=== PATIENT | female | born 2000 | race Caucasian/White ===

== ENCOUNTER 2022-08-19 22:29 | Inpatient (IN) | payer MEDICAID, SELFPAY ==
[2022-08-19 22:38] VITALS: BP 136/86; PULSE 76; RESP 18; TEMP 36.8; O2SAT 98
--- NOTE | 2022-08-19 22:53 | ED.C_ITS ---
HPI - Psych General: Chief Complaint: Psychiatric Symptoms Stated Complaint: MHE Time Seen by Provider: 08/19/22 22:42 Source: patient Mode of arrival: ambulatory Limitations: no limitations History of Present Illness: 22-year-old female who has history of bipolar disorder states she stopped taking her Latuda in April she lives in [facility] mom states that she moved here 3 weeks ago states over the last week she has been extremely paranoid she has made statements she feels like her mom's is going to try to kill her she is also having suicidal thoughts she informing she does have thoughts of suicide with no specific plan she denies any worsening proving factors. Associated symptoms: Reports delusions and suicidal ideation Review of Systems Const: Denies: fever(s), chills, body aches or change in appetite Eyes: Denies: blurry vision or eye discomfort ENMT: Denies: throat pain or dental pain Card: Denies: chest pain Resp: Denies: dyspnea GI: Denies: abdominal pain, nausea, vomiting or diarrhea : Denies: dysuria Musc: Denies: neck pain or back pain Skin/Breast: Denies: rash Neuro: Denies: headache(s) Psych: Reports: paranoia and suicidal ideation Vinod/Lymph: Denies: easy bruising All/Imm: Denies: urticaria PFSH ED PFSH: Medical History (Updated 08/19/22 @ 23:20 by Yessi Cruz MD) Bipolar 1 disorder Social History (Updated 08/19/22 @ 22:54 by Yessi Cruz MD) Substance/Drug Use: never Physical Exam Const: COMMON NORMALS: no acute distress, patient oriented x3 and healthy appearing HENMT: COMMON NORMALS: normocephalic and atraumatic HEAD & SCALP: normocephalic and atraumatic Eye: COMMON NORMALS: Equal, round and reactive pupils present and EOMs intact bilaterally PUPIL: Yes Equal, round and reactive pupils present Neck/C-Spine: COMMON NORMALS: full ROM and supple Chest: COMMONS NORMALS: normal inspection of the chest and normal palpation of entire chest wall Resp: COMMON NORMALS: normal respiratory effort, No retractions, No use of accessory muscles and clear to auscultation bilaterally AUSCULTATION: clear to auscultation bilaterally Cardio: COMMON NORMALS: regular rate, regular rhythm and No murmurs present (Cardio) RATE: regular rate RHYTHM: regular rhythm GI: COMMON NORMALS: Normal to inspection, nondistended, normoactive bowel sounds present, Soft to palpation, non-tender and no masses PALPATION: Yes Soft to palpation Extremity: COMMON NORMALS: normal to inspection and full ROM Neuro: COMMON NORMALS: patient oriented x3, moves all extremities and no focal motor deficits Psych: COMMON NORMALS: mental status grossly normal, Normal thought process present and cooperative THOUGHT PROCESS: Normal thought process present THOUGHT CONTENT: Yes Suicidality present, Yes delusions and Yes Hallucination(s) present Skin: COMMON NORMALS: no rashes or lesions noted and no wounds GENERAL SKIN EXAM: no rashes or lesions noted Course Vital Signs: Vital signs: Vital Signs Temperature 98.3 F 08/19/22 22:38 Pulse Rate 76 08/19/22 22:38 Respiratory Rate 18 08/19/22 22:38 Blood Pressure 136/86 08/19/22 22:38 Pulse Oximetry 98 08/19/22 22:38 Oxygen Delivery Me thod 08/19/22 22:38 MDM - Psych Medical Decision Making Patient presents here with suicidal ideation along with paranoia I spoke to Dr. Vallejo he should have discharge tomorrow and will admit at that time she is medically cleared. Lab Data 08/19/22 23:01 08/19/22 23:01 Laboratory Results WBC 10.6 10^3/uL (4.0-10.0) H 08/19/22 23:01 RBC 4.47 10^6/uL (4.1-5.3) 08/19/22 23:01 Hgb 11.3 g/dL (11.5-15.3) L 08/19/22 23:01 Hct 36.8 % (37.0-47.0) L 08/19/22 23:01 MCV 82.3 fl (81-99) 08/19/22 23: MCH 25.3 pg (28.0-34.0) L 08/19/22 23:01 MCHC 30.7 g/dL (30.0-36.0) 08/19/22 23:01 RDW 13.6 % (12.1-15.1) 08/19/22 23:01 Plt Count 340 10^3/cmm (130-400) 08/19/22 23:01 MPV 9.8 fL (7.4-10.4) 08/19/22 23:01 Neut % (Auto) 60.8 % 08/19/22 23:01 Lymph % (Auto) 29.4 % 08/19/22 23:01 [place] % (Auto) 8.2 % 08/19/22 23:01 Eos % (Auto) 0.8 % 08/19/22 23:01 Baso % (Auto) 0.4 % 08/19/22 23:01 Neut # (Auto) 6.44 10^3/uL (1.8-7.7) 08/19/22 23:01 Lymph # (Auto) 3.1 10^3/uL (0.8-4.8) 08/19/22 23:01 [place] # (Auto) 0.9 10^3/uL (0.2-0.9) 08/19/22 23:01 Eos # (Auto) 0.1 10^3/uL (0.0-0.8) 08/19/22 23:01 Baso # (Auto) 0.0 10^3/uL (0.0-0.1) 08/19/22 23:01 Nucleated RBC % (auto) 0 % 08/19/22 23:01 Nucleated RBCs # 0.0 /100WBC 08/19/22 23:01 HCG, Qual Negative (Negative) 08/19/22 22:53 Urine Opiates Screen Negative ng/mL (Negative) 08/19/22 22:53 Ur Barbiturates Screen Negative ng/mL (Negative) 08/19/22 22:53 Ur Phencyclidine Scrn Negative ng/mL (Negative) 08/19/22 22:53 Ur Amphetamines Screen Negative ng/mL (Negative) 08/19/22 22:53 U Benzodiazepines Scrn Negative ng/mL (Negative) 08/19/22 22:53 Urine Cocaine Screen Negative ng/mL (Negative) 08/19/22 22:53 U Marijuana (THC) Screen Negative ng/mL (Negative) 08/19/22 22:53 Discharge Plan Discharge Patient Disposition: Admitted As Inpatient Clinical Impression: Bipolar disorder, Suicidal ideation Coding Level of Care Code ED Ear Nose Throat Physician for Cierra Kelley
[2022-08-19 23:11] LABS: Amphetamines Screen Urine Negative (Negative); Barbiturates Screen Urine Negative (Negative); Benzodiazepines Screen Urine Negative (Negative); Cocaine Screen Urine Negative (Negative); Opiate Screen Urine Negative (Negative); PCP Screen Urine Negative (Negative); THC Screen Urine Negative (Negative)
[2022-08-19 23:12] LABS: Basophils % 0.4 %; Eosinophils # 0.1 10^3/uL (0.0-0.8); Eosinophils % 0.8 %; Hematocrit 36.8 % (37.0-47.0); Hemoglobin 11.3 g/dL (11.5-15.3); Lymphocytes # 3.1 10^3/uL (0.8-4.8); Lymphocytes % 29.4 %; Mean Corpuscular HGB Conc 30.7 g/dL (30.0-36.0); Mean Corpuscular Hemoglobin 25.3 pg (28.0-34.0); Mean Corpuscular Volume 82.3 fl (81-99); Mean Platelet Volume 9.8 fL (7.4-10.4); Monocytes # 0.9 10^3/uL (0.2-0.9); Monocytes % 8.2 %; Neutrophils # 6.44 10^3/uL (1.8-7.7); Neutrophils % 60.8 %; Nucleated Red Blood Cells % 0 %; Platelet Count 340 10^3/cmm (130-400); Red Blood Count 4.47 10^6/uL (4.1-5.3); Red Cell Distribution Width 13.6 % (12.1-15.1); White Blood Count 10.6 10^3/uL (4.0-10.0)
[2022-08-19 23:17] LABS: HCG Qualitative Urine. Negative (Negative)
[2022-08-19 23:30] LABS: Alanine Aminotransferase 15 U/L (0-33); Albumin Level 4.3 g/dL (3.5-5.2); Alkaline Phosphatase 72 U/L (35-105); Aspartate Amino Transferase 15 U/L (0-32); Blood Urea Nitrogen 8 mg/dL (6-20); Calcium 8.8 mg/dL (8.5-10.5); Carbon Dioxide 20 mmol/L (22-29); Chloride 102 mmol/L (98-107); Globulin 3.5 g/dL (1.3-4.6); Glucose 95 mg/dL (65-115); Osmolality Calculated 276 mOsm/kg (285-295); Salicylate 1.8 mg/dL (3-10); Sodium 134 mmol/L (136-145); Total Bilirubin 0.2 mg/dL (0.15-1.2); Total Protein 7.8 g/dL (6.6-8.7)
[2022-08-19 23:37] LABS: Acetaminophen < 5.0 ug/mL (10-30); Alcohol Level < 10 mg/dL (0-10)
--- NOTE | 2022-08-20 00:31 | ED.C_ITS ---
HPI - Psych General: Chief Complaint: Psychiatric Symptoms Stated Complaint: MHE Time Seen by Provider: 08/19/22 22:42 Source: patient Mode of arrival: ambulatory [facility] ED PFSH: Medical History (Updated 08/19/22 @ 23:20 by Yessi Cruz MD) Bipolar 1 disorder Social History (Updated 08/19/22 @ 22:54 by Yessi Cruz MD) Substance/Drug Use: never Course Vital Signs: Vital signs: Vital Signs Temperature 98.3 F 08/19/22 22:38 Pulse Rate 76 08/19/22 22:38 Respiratory Rate 18 08/19/22 22:38 Blood Pressure 136/86 08/19/22 22:38 Pulse Oximetry 98 08/19/22 22:38 Oxygen Delivery Me thod 08/19/22 22:38 MDM - Psych Medical Decision Making Patient presents here with paranoid along with suicidal ideation I spoke to psychiatrist he will and will admit here she is medically cleared. Lab Data 08/19/22 23:01 08/19/22 23:01 Laboratory Results WBC 10.6 10^3/uL (4.0-10.0) H 08/19/22 23:01 RBC 4.47 10^6/uL (4.1-5.3) 08/19/22 23:01 Hgb 11.3 g/dL (11.5-15.3) L 08/19/22 23:01 Hct 36.8 % (37.0-47.0) L 08/19/22 23:01 MCV 82.3 fl (81-99) 08/19/22 23:01 MCH 25.3 pg (28.0-34.0) L 08/19/22 23:01 MCHC 30.7 g/dL (30.0-36.0) 08/19/22 23:01 RDW 13.6 % (12.1-15.1) 08/19/22 23:01 Plt Count 340 10^3/cmm (130-400) 08/19/22 23:01 MPV 9.8 fL (7.4-10.4) 08/19/22 23:01 Neut % (Auto) 60.8 % 08/19/22 23: Lymph % (Auto) 29.4 % 08/19/22 23:01 [place] % (Auto) 8.2 % 08/19/22 23: Eos % (Auto) 0.8 % 08/19/22 23:01 Baso % (Auto) 0.4 % 08/19/22 23: Neut # (Auto) 6.44 10^3/uL (1.8-7.7) 08/19/22 23:01 Lymph # (Auto) 3.1 10^3/uL (0.8-4.8) 08/19/22 23: [place] # (Auto) 0.9 10^3/uL (0.2-0.9) 08/19/22 23: Eos # (Auto) 0.1 10^3/uL (0.0-0.8) 08/19/22 23: Baso # (Auto) 0.0 10^3/uL (0.0-0.1) 08/19/22 23:01 Nucleated RBC % (auto) 0 % 08/19/22 23: Nucleated RBCs # 0.0 /100WBC 08/19/22 23: Sodium 134 mmol/L (136-145) L 08/19/22 23: Potassium 4.0 mmol/L (3.5-5.1) 08/19/22 23: Chloride 102 mmol/L (98-107) 08/19/22 23: Carbon Dioxide 20 mmol/L (22-29) L 08/19/22 23: Anion Gap 16.0 (5-19) 08/19/22 23: BUN 8 mg/dL (6-20) 08/19/22 23: Creatinine 0.6 mg/dL (0.5-0.9) 08/19/22 23: GFR Calculation 125.0 mL/min (90-130) 08/19/22 23: Glucose 95 mg/dL (65-115) 08/19/22 23: Calculated Osmolality 276 mOsm/kg (285-295) L 08/19/22 23: Calcium 8.8 mg/dL (8.5-10.5) 08/19/22 23: Total Bilirubin 0.2 mg/dL (0.15-1.2) 08/19/22 23: AST 15 U/L (0-32) 04/06/23 23:01 ALT 15 U/L (0-33) 08/19/22 23:01 Alkaline Phosphatase 72 U/L (35-105) 08/19/22 23:01 Total Protein 7.8 g/dL (6.6-8.7) 08/19/22 23:01 Albumin 4.3 g/dL (3.5-5.2) 08/19/22 23:01 Globulin 3.5 g/dL (1.3-4.6) 08/19/22 23:01 HCG, Qual Negative (Negative) 08/19/22 22:53 Salicylates 1.8 mg/dL (3-10) L 08/19/22 23:01 Urine Opiates Screen Negative ng/mL (Negative) 08/19/22 22:53 Acetaminophen < 5.0 ug/mL (10-30) L 08/19/22 23:01 Ur Barbiturates Screen Negative ng/mL (Negative) 08/19/22 22:53 Ur Phencyclidine Scrn Negative ng/mL (Negative) 08/19/22 22:53 Ur Amphetamines Screen Negative ng/mL (Negative) 08/19/22 22:53 U Benzodiazepines Scrn Negative ng/mL (Negative) 08/19/22 22:53 Urine Cocaine Screen Negative ng/mL (Negative) 08/19/22 22:53 U Marijuana (THC) Screen Negative ng/mL (Negative) 08/19/22 22:53 Ethyl Alcohol < 10 mg/dL (0-10) 08/19/22 23:01 Discharge Plan Discharge Patient Disposition: Admitted As Inpatient Clinical Impression: Bipolar disorder, Suicidal ideation Coding Level of Care Code ED Global Supply Chain Director for Cierra Kelley
[2022-08-20] MEDS: diphenhydrAMINE 50 mg Capsule PO (01:32)
[2022-08-20] MEDS: metoclopramide 10 mg Tablet PO (01:32)
--- NOTE | 2022-08-20 01:33 | PC.NURSE ---
At 2320 patient was served 96 hour hold paperwork with security at bedside. All rights were read by the patient. Patient verbalized understanding. All questions were answered.
--- NOTE | 2022-08-20 08:03 | PC.PHAR ---
ATTEMPTED TO VERIFY PTS MEDS AT 8:00 AM- PT UNSURE OF NAMES AND MG OF MEDICATIONS- WAITING FOR PTS MOTHER TO CALL BACK
[2022-08-20 16:32] VITALS: BP 119/84; PULSE 78; RESP 16; TEMP 36.8; O2SAT 97
[2022-08-20 20:52] VITALS: BP 124/79; PULSE 93; RESP 16; TEMP 36.8; O2SAT 96
[2022-08-21] MEDS: OLANZapine 5 mg ODT PO (03:56)
--- NOTE | 2022-08-21 03:56 | PC.NURSE ---
Patient came to RN station & said that she was supposed to let us know if any of her psychotic features were acting up & she feels like the building is wrapping & things are moving, but they aren't scaring her & she isn't hearing anything . Zyprexa 5mg given.
[2022-08-21 06:00] VITALS: RESP 18
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
[2022-08-21 14:00] VITALS: BP 116/74; PULSE 94; RESP 16; TEMP 36.6; O2SAT 99
[2022-08-21] MEDS: ziprasidone hcl 20 mg Capsule PO (14:52)
[2022-08-21 20:09] VITALS: BP 123/76; PULSE 78; RESP 16; TEMP 36.7; O2SAT 98
[2022-08-22 06:00] VITALS: BP 126/80; PULSE 66; RESP 16; TEMP 36.7; O2SAT 100
[2022-08-22] MEDS: acetaminophen 325 mg Tablet 650 MG PO (06:15)
[2022-08-22] MEDS: ziprasidone hcl 20 mg Capsule PO (08:24)
[2022-08-22] MEDS: pantoprazole DR 40 mg Tablet PO ×2 (08:24→18:27)
--- NOTE | 2022-08-22 08:31 | P.NPUPN_ITS ---
Subjective NPU Subjective: Patient presented today reporting that things were fine overnight. She reports that she feels that the medication change has been okay. She denies having any perceptual disturbances. We discussed that Dr. Cage would be here tomorrow and she will work with him and treatment team to figure out a plan for discharge likely over the next 48 hours. Mental Status Exam MSE Comments: Cooperative with exam in mild distress. Speech was slightly decreased rate and volume. Mood described as a little better, affect is congruent. Thought process, organized. Thought content: patient denies suicidal or homicidal ideation, no delusions reported or noted and denies any auditory/visual hallucination this morning. Attention and concentration are intact and memory appeared reliable but none were formally tested. She is alert and oriented times three. Insight and judgement are fair. Impulse control is li mited. Vitals/I&O/Wt Last Vital Signs Temp 98.5 F 08/22/22 20:08 Pulse 87 08/22/22 20:08 Resp 16 08/22/22 20:08 BP 132/89 08/22/22 20:08 Pulse Ox 98 08/22/22 20:08 O2 Del Method 08/22/22 20:08 Weight last 48 hrs Weight 97.069 kg Data NPU 08/19/22 23:01 08/19/22 23:01 Involuntary Hold Information 96 Hour Hold: 96 Hour Involuntary Admission: Yes 96 Hour Hold Ending Date: 08/25/22 96 Hour Hold Ending Time: 23:00 Attestations NPU Medical Necessity Statement*: Inpatient hospitalization is medically necessary and the clinically appropriate intervention at this time. We will monitor medications and make changes as indicated. Likely length of stay is 1-4 days. Coding Level of Care Code Acute Code for [facility]
[2022-08-22 14:00] VITALS: BP 122/80; PULSE 83; RESP 18; TEMP 36.8; O2SAT 99
[2022-08-22] MEDS: ziprasidone hcl 60 mg Capsule PO (18:27)
[2022-08-22] MEDS: trazodone 50 mg Tablet PO (20:06)
[2022-08-22 20:08] VITALS: BP 132/89; PULSE 87; RESP 16; TEMP 36.9; O2SAT 98
--- NOTE | 2022-08-22 20:10 | PC.NURSE ---
PRN trazodone given for sleep as ordered per pt request.
[2022-08-23 06:00] VITALS: BP 117/79; PULSE 78; RESP 18; TEMP 36.6; O2SAT 98
[2022-08-23] MEDS: pantoprazole DR 40 mg Tablet PO (08:32)
[2022-08-23] MEDS: ziprasidone hcl 20 mg Capsule PO (08:32)
[2022-08-23 14:00] VITALS: BP 119/57; PULSE 91; RESP 16; TEMP 36.8; O2SAT 97
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
[2022-08-23 15:59] VITALS: BP 116/77; PULSE 89; RESP 16; TEMP 36.8; O2SAT 98
== END 2022-08-23 16:18 | disposition home or self-care (01) | DRG 885 ==
LOC: ER 23:20 → ER IP 08-20 16:41 → NP 08-20 16:41
PROVIDERS: Admitting Provider Psychiatry & Neurology Psychiatry; Emergency Provider Emergency Medicine; Visit Provider Psychiatry & Neurology Psychiatry
DX: F31.9 Bipolar disorder, unspecified (principal); R45.851 Suicidal ideations; F22 Delusional disorders; T50.996A Underdosing of other drugs, medicaments and biological substances, initial encounter; Z91.128 Patient's intentional underdosing of medication regimen for other reason; Z81.8 Family history of other mental and behavioral disorders
CPT/HCPCS: 80053; 80306; 80307; 81025; 85025; 97150; 97165; 99285; J8597; Q0163

== ENCOUNTER 2022-08-27 15:13 | Inpatient (IN) | payer MEDICAID, SELFPAY ==
[2022-08-27 15:18] VITALS: BP 148/95; PULSE 162; RESP 32; TEMP 36.8; O2SAT 100; BMI 36.8
--- NOTE | 2022-08-27 15:26 | ED.C_ITS ---
HPI - Psych General: Chief Complaint: Neuro Symptoms/Deficit Stated Complaint: stroke like symptoms Time Seen by Provider: 08/27/22 15:20 Source: patient Mode of arrival: ambulatory History of Present Illness: 22-year-old female arrives to the emergency room complaining of numbness and tingling she is obviously hyperventilating on arrival we were able to assistant coach her down a little bit and calm her breathing which did relieve some of her symptoms. She was recently hospitalized on 08/20 and discharged on 08/23. She has no specific complaints initially when I seen her. She did express suicidal ideation to the nurse while she was doing her triage. Her previous MPU admission was for suicidal ideation as well MD complaint: suicidal ideation and feels depressed Associated psychiatric symptoms: suicidal ideation Associated symptoms: Reports depression and suicidal ideation Review of Systems 2 Const: Denies: fever(s), chills, body aches, change in appetite, fatigue or malaise ENMT: Denies: throat pain, ear or mastoid pain, nasal discharge or nasal congestion Card: Denies: chest pain, edema, dyspnea on exertion or orthopnea Resp: Denies: dyspnea, productive cough or non-productive cough GI: Denies: abdominal pain, nausea, vomiting, diarrhea or constipation : Denies: flank pain, difficulty voiding, dysuria, urinary frequency or urinary urgency Skin/Breast: Denies: rash or pruritus Psych: Reports: depression and suicidal ideation [facility] ED PFSH: Medical History Bipolar 1 disorder Physical Exam Const: COMMON NORMALS: no acute distress GENERAL APPEARANCE: cooperative and comfortable ORIENTATION/CONSCIOUSNESS: Yes awake, Yes oriented to person, Yes oriented to place and Yes oriented to time HENMT: COMMON NORMALS: normocephalic, atraumatic and hearing grossly normal bilaterally HEAD & SCALP: normocephalic and atraumatic Resp: COMMON NORMALS: normal respiratory effort, No retractions, No use of accessory muscles and clear to auscultation bilaterally AUSCULTATION: clear to auscultation bilaterally Cardio: COMMON NORMALS: regular rate, regular rhythm and No murmurs present (Cardio) RATE: regular rate RHYTHM: regular rhythm GI: COMMON NORMALS: Soft to palpation and No hepatosplenomegaly present AUSCULTATION: Yes normoactive bowel sounds PALPATION: Yes Soft to palpation, No Tenderness to palpation present (GI), No Guarding due to palpation present (GI) and Yes No hepatosplenomegaly present Extremity: COMMON NORMALS: normal to inspection, capillary refill normal, no clubbing, cyanosis or edema, no calf tenderness and no pedal edema Neuro: SENSORIUM/ORIENTATION: Yes oriented to person, Yes oriented to place and Yes oriented to time OTHER: No focal neurologic deficits are noted NIH 0 Skin: COMMON NORMALS: no rashes or lesions noted GENERAL SKIN EXAM: no rashes or lesions noted Course Vital Signs: Vital signs: Vital Signs Temperature 98.2 F 08/27/22 15:18 Pulse Rate 162 H 08/27/22 15:18 Respiratory Rate 32 H 08/27/22 15:18 Blood Pressure 148/95 08/27/22 15:18 Pulse Oximetry 100 08/27/22 15:18 Oxygen Delivery Me thod Room Air 08/27/22 15:18 MDM - Psych Medical Decision Making Patient expressed suicidal ideation. On arrival here she is acutely hyperventilating as documented by the ABG. 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 Discussed with Dr. Flores is on-call for psychiatry who recommends admission at this time. Patient placed on a 96-hour hold. Medical Records I reviewed the patient's medical records. Lab Data I reviewed the patient's lab results. Laboratory Results Specimen Type Arterial 08/27/22 15: Sample Site Radial, right 08/27/22 15:23 ABG pH 7.46 (7.35-7.45) H 08/27/22 15: ABG pCO2 29.3 mmHg (35-45) L 08/27/22 15:23 ABG pO2 105.0 mmHg (80.0-100.0) H 08/27/22 15:23 ABG HCO3 21.0 mmol/L (22-26) L 08/27/22 15:23 ABG O2 Saturation 99.4 08/27/22 15:23 ABG Base Excess -1.8 mmol/L (-2.0-2.0) 08/27/22 15:23 Johnnie Test Pos 08/27/22 15:23 A-a O2 Gradient 0.7 mmHg (5-10) L 08/27/22 15:23 Hematocrit 35.7 % (37-47) L 08/27/22 15:23 Hgb O2 Saturation 97.4 % (95-100) 08/27/22 15:23 Carboxyhemoglobin 1.2 %THgb (0.4-20.1) 08/27/22 15:23 Methemoglobin 0.7 % (0.4-1.5) 08/27/22 15:23 Total Hemoglobin 11.7 g/dL (12-16) L 08/27/22 15:23 Sodium 140.0 mmol/L (131-143) 08/27/22 15:23 Potassium 3.9 mmol/L (3.5-5.0) 08/27/22 15:23 Glucose 125.0 mg/dL (70-115) H 08/27/22 15:23 Ionized Calcium 1.2 mmol/L (1.1-1.4) 08/27/22 15:23 O2 Delivery Device None 08/27/22 15: FiO2 21.0 % 08/27/22 15:23 Air Brush Operator ID [place] 08/27/22 15:23 Discharge Plan Discharge Patient Disposition: Admitted As Inpatient Admit Provider: Dev Cage Clinical Impression: Suicidal ideation, Bipolar 1 disorder Condition: Stable Coding Level of Care Code ED Operations Label Clerk for Cierra Kelley
[2022-08-27 15:34] LABS: ABG PCO2 29.3 mmHg (35-45); ABG PH Result 7.46 (7.35-7.45); Alveolar-Arterial Oxygen Gradi 0.7 mmHg (5-10); Arterial Blood Gas Hematocrit 35.7 % (37-47); Base Excess ABG -1.8 mmol/L (-2.0-2.0); Blood Gas Allen Test Pos; Blood Gas Operator Identificat WALCI; Blood Gas Sample Site Radial, right; Blood Gas Sample Type Arterial; Carboxyhemoglobin 1.2 %THgb (0.4-20.1); HGB O2 Sat 97.4 % (95-100); Ionized Calcium Level - ABG 1.2 mmol/L (1.1-1.4); Methemoglobin 0.7 % (0.4-1.5); Oxygen Saturation ABG 99.4; Potassium Level - ABG 3.9 mmol/L (3.5-5.0); Total Hemoglobin 11.7 g/dL (12-16)
[2022-08-27 17:06] LABS: Add Urine Microscopic? NO; Charge for UA Resulting for Rev
[2022-08-27 17:11] LABS: Bilirubin Urine Neg (Negative); Blood Urine Neg (Negative); Glucose Urine UA Norm (Normal); Ketones Urine Negative (Negative); Leukocyte Esterase Urine Negative (Negative); Nitrate Urine Negative (Negative); Protein Urine Neg (Negative); Specific Gravity, Urine 1.015 (1.005-1.030); Urine Appearance Clear (CLEAR); Urine Color Yellow (Yellow); Urobilinogen Urine Neg (Negative); pH Urine 7 (5-7)
[2022-08-27 17:31] LABS: Amphetamines Screen Urine Negative (Negative); Barbiturates Screen Urine Negative (Negative); Benzodiazepines Screen Urine Negative (Negative); Cocaine Screen Urine Negative (Negative); Opiate Screen Urine Negative (Negative); PCP Screen Urine Negative (Negative); THC Screen Urine Negative (Negative)
[2022-08-27 17:37] VITALS: BP 114/76; PULSE 82; RESP 16; TEMP 36.7; O2SAT 99
[2022-08-27 18:06] LABS: Basophils % 0.3 %; Eosinophils # 0.1 10^3/uL (0.0-0.8); Eosinophils % 0.6 %; Hematocrit 36.5 % (37.0-47.0); Hemoglobin 11.4 g/dL (11.5-15.3); Lymphocytes # 2.9 10^3/uL (0.8-4.8); Mean Corpuscular HGB Conc 31.2 g/dL (30.0-36.0); Mean Corpuscular Hemoglobin 25.7 pg (28.0-34.0); Mean Corpuscular Volume 82.4 fl (81-99); Mean Platelet Volume 9.9 fL (7.4-10.4); Monocytes # 0.6 10^3/uL (0.2-0.9); Monocytes % 6.4 %; Neutrophils # 5.77 10^3/uL (1.8-7.7); Neutrophils % 61.5 %; Nucleated Red Blood Cells % 0 %; Platelet Count 331 10^3/cmm (130-400); Red Blood Count 4.43 10^6/uL (4.1-5.3); Red Cell Distribution Width 14.1 % (12.1-15.1); White Blood Count 9.4 10^3/uL (4.0-10.0)
[2022-08-27 18:26] LABS: Alanine Aminotransferase 15 U/L (0-33); Albumin Level 4.4 g/dL (3.5-5.2); Alkaline Phosphatase 74 U/L (35-105); Anion Gap 13.9 (5-19); Aspartate Amino Transferase 15 U/L (0-32); Blood Urea Nitrogen 5 mg/dL (6-20); Calcium 8.5 mg/dL (8.5-10.5); Carbon Dioxide 24 mmol/L (22-29); Chloride 104 mmol/L (98-107); Globulin 3.1 g/dL (1.3-4.6); Glomerular Filtration Rate 154.3 mL/min (90-130); Glucose 82 mg/dL (65-115); Osmolality Calculated 282 mOsm/kg (285-295); Potassium 3.9 mmol/L (3.5-5.1); Sodium 138 mmol/L (136-145); Total Bilirubin 0.2 mg/dL (0.15-1.2); Total Protein 7.5 g/dL (6.6-8.7)
[2022-08-27 18:27] LABS: Acetaminophen < 5.0 ug/mL (10-30); Salicylate < 0.3 mg/dL (3-10)
[2022-08-27] MEDS: trazodone 50 mg Tablet PO (20:21)
[2022-08-27] MEDS: acetaminophen 325 mg Tablet 650 MG PO (20:25)
[2022-08-27] MEDS: ziprasidone hcl 60 mg Capsule PO (20:39)
[2022-08-27 22:00] VITALS: BP 117/75; PULSE 78; RESP 18; TEMP 36.8; O2SAT 98
[2022-08-28 06:00] VITALS: BP 113/74; PULSE 70; RESP 17; TEMP 36.6; O2SAT 98
[2022-08-28] MEDS: ziprasidone hcl 20 mg Capsule PO (08:50)
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
[2022-08-28] MEDS: lamoTRIgine 25 mg Tablet PO (13:30)
--- NOTE | 2022-08-28 13:58 | PC.NURSE ---
discharge instruction discussed and left with patient. pt stated understanding and compliance. pt left with her mom in pov.
[2022-08-28 14:00] VITALS: BP 113/74; PULSE 70; RESP 17; TEMP 36.6; O2SAT 98
--- NOTE | 2022-08-30 09:41 | PC.OT ---
OT EVALUATION ORDERS RECEIVED. PATIENT DISCHARGED BEFORE EVALUATION COULD BE COMPLETED.
== END 2022-08-28 13:55 | disposition home or self-care (01) | DRG 885 ==
LOC: ER 15:30 → NP 16:44
PROVIDERS: Admitting Provider Psychiatry & Neurology Psychiatry; Emergency Provider Family Medicine; PCP Family Medicine; Visit Provider Psychiatry & Neurology Psychiatry
DX: F31.9 Bipolar disorder, unspecified (principal); R45.851 Suicidal ideations; Z62.810 Personal history of physical and sexual abuse in childhood; Z62.811 Personal history of psychological abuse in childhood; Z81.8 Family history of other mental and behavioral disorders; Z91.411 Personal history of adult psychological abuse
CPT/HCPCS: 36600; 80051; 80053; 80306; 80307; 81003; 82330; 82805; 85025; 99285

== ENCOUNTER → 2022-09-11 14:46 | Outpatient (BNVA) | payer BC, SELFPAY | PROVIDERS: PCP Family Medicine; Visit Provider Registered Nurse Neonatal Intensive Care | DX: R39.9 Unspecified symptoms and signs involving the genitourinary system (principal) | CPT/HCPCS: 81000 ==

== ENCOUNTER → 2022-09-15 10:42 | Outpatient (BNVA) | payer BC, MEDICAID, SELFPAY | PROVIDERS: PCP Family Medicine; Referring Provider Family Medicine; Visit Provider Specialist | DX: G40.909 Epilepsy, unspecified, not intractable, without status epilepticus (principal) | CPT/HCPCS: 95812; 95816 ==

== ENCOUNTER 2022-09-26 22:28 | Emergency (ER) | payer BC, MEDICAID, SELFPAY ==
--- NOTE | 2022-09-26 22:52 | W.ED.SOB ---
HPI - SOB/Dyspnea General: Chief Complaint: Shortness of Breath/Dyspnea Stated Complaint: SOB Time Seen by Provider: 09/26/22 22:31 History of Present Illness: HPI Narrative: 22-year-old female comes in today for complaints of rash to her forearm and right side. Patient also reports some shortness of breath. Patient appears nontoxic. Patient's respirations are even without any distress. Patient has a history of depression and anxiety. Patient has recently been placed on lamotrigine and is concerned the medication is causing the symptoms. Patient also has a history of a septal defect that is considered benign. Associated symptoms: Deny chest pain, fever(s), nausea, polyuria or vomiting Review of Systems General: Reports: 10 or more systems reviewed and unremarkable except in HPI and below Const: Denies: fever(s) Eyes: Denies: change in vision ENMT: Denies: throat pain Card: Denies: chest pain Resp: Reports: dyspnea GI: Denies: nausea or vomiting : Denies: difficulty voiding Musc: Denies: neck pain or back pain Skin/Breast: Reports: rash Neuro: Denies: headache(s) Endo: Denies: polyuria PFSH ED PFSH: Medical History Asthma, exercise induced Bipolar 1 disorder Bipolar disorder Borderline personality disorder Psychiatric care PTSD (post-traumatic stress disorder) VSD (ventricular septal defect) Family History Grandfather Cancer Maternal-pancreatic Grandmother Cancer Maternal-lung Other Chronic kidney disease (CKD) Dementia Diabetes Hypertension Lung disease Psychiatric illness Denies family history of CAD (coronary artery disease) Clotting disorder Hyperlipidemia Suicide Anesthesia complication Bleeding disorder Stroke Social History Smoking and tobacco status: never smoked Alcohol intake: current Alcohol intake frequency: holidays/special occasions only Substance/Drug Use: never Lives independently: Yes Marital status: Single Number of children: 0 Current occupational status: other Special kenzie needs: No Agree to transfusion: Yes Physical Exam Const: COMMON NORMALS: alert HENMT: COMMON NORMALS: normocephalic HEAD & SCALP: normocephalic MOUTH: Normal oral and palatal mucosa present Neck/C-Spine: COMMON NORMALS: full ROM Resp: COMMON NORMALS: normal respiratory effort and clear to auscultation bilaterally AUSCULTATION: clear to auscultation bilaterally Cardio: COMMON NORMALS: regular rate and regular rhythm RATE: regular rate RHYTHM: regular rhythm GI: COMMON NORMALS: non-tender Back/Pelvis: COMMON NORMALS: thoracic and lumbar spine normal to inspection Extremity: COMMON NORMALS: full ROM Neuro: SENSORIUM/ORIENTATION: Yes alert Skin: NARRATIVE SKIN EXAM: Rash to right forearm and right abdomen. RASHES: other (Scattered patches of maculopapular rash.) Course Vital Signs: Vital signs: Vital Signs Temperature 98.2 F 09/26/22 22:58 Pulse Rate 98 09/26/22 23:07 Respiratory Rate 16 09/26/22 23:07 Blood Pressure 111/70 09/26/22 23:07 Pulse Oximetry 98 09/26/22 23:07 Oxygen Delivery Me thod Room Air 09/26/22 22:58 MDM - SOB/Dyspnea Medical Decision Making 22-year-old female comes in today with with some shortness of breath. On exam lungs were clear to auscultation. Heart rate was regular with normal tones. Vital signs were normal. Patient was also concerned about a rash to her forearms and right side of abdomen. Differential diagnosis includes anxiety, poison wen, asthma, unlikely ACS, unlikely pneumonia. I believe patient probably has some anxiety and a bout of poison wen. Patient has no signs or symptoms of pneumonia or ACS. Chest x-ray done was clear. Patient was recommended just follow-up for primary care regarding her symptoms. Patient will be started on some prednisone 20 mg daily for the next 10 days to help with her poison wen rash. Otherwise recommended Benadryl and calamine lotion. Patient stated understanding and agreed to plan. Discharge Plan Discharge Patient Disposition: Home Clinical Impression: Allergic dermatitis due to poison wen, Dyspnea on effort Condition: Stable Prescriptions: New prednisone 20 mg tablet 20 mg PO DAILY Qty: 10 0RF No Action ziprasidone HCl 60 mg capsule 60 mg PO DAILY@19 Qty: 30 0RF ziprasidone HCl 20 mg capsule 20 mg PO DAILY@09 Qty: 30 0RF sulfamethoxazole-trimethoprim [Bactrim DS] 800-160 mg tablet 1 tab PO BID Qty: 10 0RF ibuprofen 200 mg Tablet 400 mg PO Q6H PRN (Reason: Pain) lamotrigine 25 mg tablet 25 mg PO BID 30 Days Qty: 60 1RF Discharge Orders: Discharge ED (Routine); Ordered 09/26/22 Ordered By: Rolf Reardon Referrals: Jovanny Davis MD [Primary Care Provider] - Discharge Diet: Usual diet Discharge Activity: Increase activity as tolerated Patient Instructions: Poison Wen (ED), Dyspnea (ED) Activity Restrictions/Additional Instructions: Healthy diet and exercise. You may use hydrocortisone cream and calamine lotion to your rash until clear. Take steroid as directed. Drink plenty of water with medication. Follow-up with primary care for further instruction and evaluation. Return to ED for new concerns. Coding Level of Care Code ED Locomotive Crane Operator Helper for Cierra Kelley
[2022-09-26 22:58] VITALS: BP 129/84; PULSE 91; RESP 18; TEMP 36.8; O2SAT 98; BMI 37.5
--- NOTE | 2022-09-26 22:58 | XRR_ITS ---
PROCEDURE INFORMATION: Exam: XR Chest Exam date and time: 09/26/2022 11:09 PM Age: 22 years old Clinical indication: Shortness of breath; Additional info: Dyspnea TECHNIQUE: Imaging protocol: Radiologic exam of the chest. Views: 1 view. COMPARISON: No relevant prior studies available. FINDINGS: Lungs: Unremarkable. No consolidation. Pleural spaces: Unremarkable. No pleural effusion. No pneumothorax. Heart/Mediastinum: Unremarkable. No cardiomegaly. Bones/joints: Unremarkable. XR/XR chest 1V portable [id number] IMPRESSION: No acute findings.
[2022-09-26 23:07] VITALS: BP 111/70; PULSE 98; RESP 16; O2SAT 98
[2022-09-26] MEDS: predniSONE 20 mg Tablet 40 MG PO (23:15)
== END 2022-09-26 23:23 | disposition home or self-care (01) ==
PROVIDERS: Emergency Provider Nurse Practitioner Family; PCP Family Medicine
DX: L23.7 Allergic contact dermatitis due to plants, except food (principal); R06.00 Dyspnea, unspecified
CPT/HCPCS: 71045; 99283; J7512

== ENCOUNTER → 2022-10-07 14:35 | Outpatient (BNVA) | payer BC, MEDICAID, SELFPAY | PROVIDERS: PCP Family Medicine; Visit Provider Registered Nurse Neonatal Intensive Care | DX: N39.0 Urinary tract infection, site not specified (principal) | CPT/HCPCS: 81000; 87077; 87086; 87184 ==

== ENCOUNTER → 2022-10-13 17:13 | Outpatient (BNVA) | payer BC, MEDICAID, SELFPAY | PROVIDERS: PCP Family Medicine; Visit Provider Registered Nurse Neonatal Intensive Care | DX: N39.0 Urinary tract infection, site not specified (principal) | CPT/HCPCS: 81000 ==

== ENCOUNTER → 2023-01-21 15:40 | Outpatient (BNVA) | payer BC, MEDICAID, SELFPAY | PROVIDERS: PCP Family Medicine; Visit Provider Nurse Practitioner | DX: R39.9 Unspecified symptoms and signs involving the genitourinary system (principal) | CPT/HCPCS: 81000; 87077; 87086; 87184 ==

== ENCOUNTER → 2023-02-04 15:02 | Outpatient (BNVA) | payer BC, SELFPAY | PROVIDERS: PCP Family Medicine; Visit Provider Nurse Practitioner | DX: Z79.899 Other long term (current) drug therapy (principal); F43.10 Post-traumatic stress disorder, unspecified; F41.1 Generalized anxiety disorder; F60.3 Borderline personality disorder | CPT/HCPCS: 80061; 83036 ==

== ENCOUNTER 2023-02-06 23:23 | Emergency (ER) | payer BC, MEDICAID, SELFPAY ==
[2023-02-06 23:29] VITALS: BP 131/72; PULSE 69; RESP 17; TEMP 36.8; O2SAT 100; BMI 28.3
[2023-02-07] MEDS: ketorolac 30 mg/mL INJ 15 MG IVP (00:33)
[2023-02-07] MEDS: diphenhydrAMINE 50 mg/mL SDV 1mL IVP (00:34)
[2023-02-07] MEDS: valproic acid inj 500 MG in sodium chloride 0.9% 50 ML 55 MG IV (01:08)
--- NOTE | 2023-02-07 03:00 | ED_ITS ---
HPI - Seizure General: Chief Complaint: Seizure Stated Complaint: headache Time Seen by Provider: 02/06/23 23:36 Source: patient and family Mode of arrival: ambulatory Limitations: no limitations History of Present Illness: HPI Narrative: Patient presents to the emergency department today accompanied by her mother for evaluation treatment of left-sided headache after a seizure . Patient reports she is in the process of being evaluated for potential seizures. She states that this time her doctor is calling them pseudoseizures. She reports a prodrome of d?j? vu and then will lose motor function. Patient states she collapses. She does not lose consciousness but is unable to respond or move for a bit. Mom states she is then very confused for a while before coming out of it. Patient reports that while at work today she was putting napkins in the napkin holders when she felt the sensation of d?j? vu. She states she collapsed onto the floor. She was able to recover, call her mother, and be brought here to the emergency department. She complains of continued left-sided headache which is typical for her during these episodes. She did not have any vomiting, loss of bowels, and denies any current change in vision. Place: Work Review of Systems General: Reports: 10 or more systems reviewed and unremarkable except in HPI and below PFSH ED PFSH: Medical History Asthma, exercise induced Bipolar 1 disorder Bipolar disorder Bipolar II disorder, mild, depressed, with anxious distress Borderline personality disorder Generalized anxiety disorder Insomnia On combination antipsychotic drug therapy Psychiatric care PTSD (post-traumatic stress disorder) VSD (ventricular septal defect) Family History Grandfather Cancer Maternal-pancreatic Grandmother Cancer Maternal-lung Other Chronic kidney disease (CKD) Dementia Diabetes Hypertension Lung disease Psychiatric illness Denies family history of CAD (coronary artery disease) Clotting disorder Hyperlipidemia Suicide Anesthesia complication Bleeding disorder Stroke Social History Smoking and tobacco status: never smoked Alcohol intake: current Alcohol intake frequency: holidays/special occasions only Substance/Drug Use: never Lives independently: Yes Marital status: Single Number of children: 0 Highest education level completed: GED or Equivalent service: No Current occupational status: other Current gender identity: Female Special kenzie needs: No Agree to transfusion: Yes Financial difficulty paying for basics: Hard Physical Exam Narrative: EXAM NARRATIVE: Patient is completely alert. She is smiling, pleasant. Answers her own history. Vital signs are stable. Patient shows no signs of any type of neurological deficit or signs of postictal state. Const: COMMON NORMALS: no acute distress, patient oriented x3 and alert Eye: COMMON NORMALS: Equal, round and reactive pupils present, EOMs intact bilaterally and conjunctivae normal CONJUNCTIVA: Yes conjunctivae normal PUPIL: Yes Equal, round and reactive pupils present Neck/C-Spine: COMMON NORMALS: no meningeal signs and no JVD Lymph: LYMPHATIC: no lymphadenopathy noted Resp: COMMON NORMALS: normal respiratory effort, No retractions and No use of accessory muscles Cardio: COMMON NORMALS: no JVD and regular rate RATE: regular rate : COMMON NORMALS: Yes no CVA tenderness BLADDER/KIDNEY EXAM: Yes no CVA tenderness Back/Pelvis: COMMON NORMALS: no CVA tenderness, thoracic and lumbar spine normal to inspection and thoraco-lumbar ROM normal Extremity: COMMON NORMALS: normal to inspection, full ROM and no pedal edema Neuro: COMMON NORMALS: patient oriented x3 SENSORIUM/ORIENTATION: Yes alert MENINGEAL SIGNS: Yes no meningeal signs CRANIAL NERVES: Yes CN normal except as noted SPEECH: speech normal GAIT: Yes Normal gait present Psych: COMMON NORMALS: mental status grossly normal, Normal thought process present, cooperative, normal affect, speech normal and activity/motor behavior normal SPEECH: Yes normal speech THOUGHT PROCESS: Normal thought process present Skin: COMMON NORMALS: no rashes or lesions noted and turgor normal GENERAL SKIN EXAM: no rashes or lesions noted and turgor normal Course Vital Signs: Vital signs: Vital Signs Temperature 98.2 F 02/06/23 23:29 Pulse Rate 69 02/06/23 23:29 Respiratory Rate 17 02/06/23 23:29 Blood Pressure 131/72 02/06/23 23:29 Pulse Oximetry 100 02/06/23 23:29 Oxygen Delivery Me thod Room Air 02/06/23 23:29 MDM - Seizure MDM Narrative Medical decision making narrative: Patient presented to the emergency department today for evaluation treatment of continued left-sided headache-typical for her after these episodes. Patient already has work-up through her primary care doctor regarding these episodes and sounds like she is getting a neurology referral. At this time I do not think any further evaluation regarding her episode is necessary. After speaking with Dr. Devine, he recommended a migraine cocktail as normal but also adding Depacon. Patient seemed to respond well to the migraine cocktail and was able to be discharged home. Encouraged her to notify her primary care doctor for evaluation through the emergency department today for continued monitoring of these episodes. Went over return precautions. Patient verbalizes understanding and agreement to treatment plan. Differential Diagnosis Seizure Differential Diagnosis: Unlikely intractable seizure disorder, febrile convulsion, focal seizure, generalized seizure, new onset seizure, epileptic s eizure or status epilepticus No radiology studies performed this visit Discharge Plan Discharge Patient Disposition: Home Clinical Impression: Left-sided headache Condition: Stable Prescriptions: No Action hydroxyzine HCl 25 mg tablet 50 mg PO .HS PRN (Reason: itching) Qty: 60 0RF Rx Instructions: 1-2 tablets at bedtime as needed for sleep. omeprazole 20 mg tablet,delayed release (DR/EC) 20 mg PO DAILY Qty: 90 1RF sertraline [Zoloft] 100 mg tablet 100 mg PO DAILY Qty: 30 1RF lurasidone [Latuda] 40 mg tablet 40 mg PO .HS Qty: 30 1RF Rx Instructions: must administer with food (at least 350 calories) sulfamethoxazole-trimethoprim [Bactrim DS] 800-160 mg tablet 1 tab PO BID 7 Days Qty: 14 0RF ibuprofen 200 mg Tablet 400 mg PO Q6H PRN (Reason: Pain) Discharge Orders: Discharge ED (Routine); Ordered 02/07/23 Ordered By: Ashley Foss Referrals: Jovanny Davis MD [Primary Care Provider] - Discharge Diet: Usual diet Discharge Activity: Increase activity as tolerated Activity Restrictions/Additional Instructions: We recommend calling your doctor in the morning to make them aware of your evaluation here in the emergency department. Continue to have close follow-up with your doctor as it does seem like they are talking about referrals and further evaluation for these episodes and potential seizures that seem to be occurring.. Stand Alone Forms: Work/School Release Coding Level of Care Code ED Blow Moulding Machine Operator for Cierra Kelley
== END 2023-02-07 02:04 | disposition home or self-care (01) ==
PROVIDERS: Emergency Provider Physician Assistant; PCP Family Medicine
DX: R51.9 Headache, unspecified (principal)
CPT/HCPCS: 96365; 96375; 99284; J1200; J1885; J3490

== ENCOUNTER 2023-02-07 18:49 | Emergency (ER) | payer BC, MEDICAID, SELFPAY ==
[2023-02-07 18:59] VITALS: BP 121/78; PULSE 74; RESP 16; TEMP 36.6; O2SAT 97; BMI 35.2
--- NOTE | 2023-02-07 19:20 | ED_ITS ---
HPI - Syncope General: Chief Complaint: Syncope Stated Complaint: fanting Time Seen by Provider: 02/07/23 19:19 History of Present Illness: 22-year-old female comes in today for complaints of passing out. Patient has had several episodes of similar events. Mom reports a significant episode in August of this year and then 1 yesterday and then once today. Although mom reports today's event did not seem as bad as yesterday's. Patient was at work yesterday and endorses loss of consciousness and then followed by headache. Patient was evaluated in the ER at that time she was treated for migraine headache. Patient had talked with her behavioral health today regarding these to advance the 1 yesterday and then this early this morning and they recommended she come to the ER be evaluated further for a mass or a intracranial bleed. Patient denies any headache at this time. Patient appears nontoxic. Patient did have some labs done last week that were unremarkable. Review of the record noted that the labs that were done were a blood glucose and cholesterol levels. Associated symptoms: Reports headache(s) Review of Systems General: Reports: 10 or more systems reviewed and unremarkable except in HPI and below Neuro: Reports: headache(s) and difficulty communicating thoughts PFSH ED PFSH: Medical History Asthma, exercise induced Bipolar 1 disorder Bipolar disorder Bipolar II disorder, mild, depressed, with anxious distress Borderline personality disorder Generalized anxiety disorder Insomnia On combination antipsychotic drug therapy Psychiatric care PTSD (post-traumatic stress disorder) VSD (ventricular septal defect) Family History Grandfather Cancer Maternal-pancreatic Grandmother Cancer Maternal-lung Other Chronic kidney disease (CKD) Dementia Diabetes Hypertension Lung disease Psychiatric illness Denies family history of CAD (coronary artery disease) Clotting disorder Hyperlipidemia Suicide Anesthesia complication Bleeding disorder Stroke Social History Smoking and tobacco status: never smoked Alcohol intake: current Alcohol intake frequency: holidays/special occasions only Substance/Drug Use: never Lives independently: Yes Marital status: Single Number of children: 0 Highest education level completed: GED or Equivalent service: No Current occupational status: other Current gender identity: Female Special kenzie needs: No Agree to transfusion: Yes Financial difficulty paying for basics: Hard Female Reproductive History: Date of last menstrual period: 01/14/23 Physical Exam Const: COMMON NORMALS: alert HENMT: COMMON NORMALS: normocephalic HEAD & SCALP: normocephalic THROAT: posterior oropharynx normal Neck/C-Spine: COMMON NORMALS: full ROM Resp: COMMON NORMALS: normal respiratory effort Cardio: COMMON NORMALS: regular rate and regular rhythm RATE: regular rate RHYTHM: regular rhythm GI: COMMON NORMALS: non-tender Back/Pelvis: COMMON NORMALS: thoracic and lumbar spine normal to inspection Extremity: COMMON NORMALS: full ROM Neuro: SENSORIUM/ORIENTATION: Yes alert Skin: COMMON NORMALS: turgor normal GENERAL SKIN EXAM: turgor normal Course Vital Signs: Vital signs: Vital Signs Temperature 97.9 F 02/07/23 18:59 Pulse Rate 74 02/07/23 18:59 Respiratory Rate 16 02/07/23 18:59 Blood Pressure 121/78 02/07/23 18:59 Pulse Oximetry 97 02/07/23 18:59 Oxygen Delivery Me thod Room Air 02/07/23 18:59 MDM - Syncope Medical Decision Making 22-year-old female reports episodes of similar nature where she has a sensation of d?j? vu and then inability to communicate. These episodes sometimes result in her losing consciousness but most of the time is just where she stares off into space. Patient does go to behavioral health counseling. Patient has been told that she possibly has pseudoseizures. Patient had a short episode today but late yesterday she had had an episode where she passed out. Mother reports that they had talked with behavioral health counseling and they recommended she be evaluated to make sure she did not have a bleed on her brain or a mass. Patient reports no headache at this time. Patient has no focal neural deficits. Pupils are equal and reactive. Vital signs are normal. Differential diagnosis includes not limited to pseudoseizures, malingering, migraine headache, intracranial bleeding, intracranial mass, electrolyte abnormality, anemia. CBC and CMP were unremarkable. CT of the head showed no intracranial abnormalities. Reviewed exam with patient and mother with recommendations for further treatment and follow-up. Recommend referral to neurology for further evaluation to rule out seizure episodes, although most probable is that this is in relation with her mental health condition. Patient and mother both reported understanding of care plan and need for follow-up. Lab Data 02/07/23 19:51 02/07/23 19:[address] 02/07/23 19:26 IMPRESSION: No acute intracranial abnormality. Laboratory Results WBC 7.29 10^3/uL (3.29-11.43) 02/07/23 19:51 RBC 4.19 10^6/uL (3.85-5.65) 02/07/23 19:51 Hgb 11.00 g/dL (11.27-16.99) L 02/07/23 19:51 Hct 36.2 % (36-47) 02/07/23 19:51 MCV 86.4 fl (85-98) 02/07/23 19:51 MCH 26.3 pg (27-33) L 02/07/23 19:51 MCHC 30.4 g/dL (30-55) 02/07/23 19:51 RDW 14.7 % (12.1-15.1) 02/07/23 19:51 Plt Count 284 10^3/cmm (157-399) 02/07/23 19:51 MPV 10.2 fL (7.4-10.4) 02/07/23 19:51 Neut % (Auto) 66.9 % 02/07/23 19:51 Lymph % (Auto) 25.8 % 02/07/23 19:51 Haakon % (Auto) 5.6 % 02/07/23 19:51 Eos % (Auto) 1.1 % 02/07/23 19:51 Baso % (Auto) 0.3 % 02/07/23 19:51 Neut # (Auto) 4.88 10^3/uL (1.8-7.7) 02/07/23 19:51 Lymph # (Auto) 1.9 10^3/uL (0.8-4.8) 02/07/23 19:51 Haakon # (Auto) 0.4 10^3/uL (0.2-0.9) 02/07/23 19:51 Eos # (Auto) 0.1 10^3/uL (0.0-0.8) 02/07/23 19:51 Baso # (Auto) 0.0 10^3/uL (0.0-0.1) 02/07/23 19:51 Nucleated RBC % (auto) 0 % 02/07/23 19:51 Nucleated RBCs # 0.0 /100WBC 02/07/23 19:51 Sodium 138 mmol/L (136-145) 02/07/23 19:51 Potassium 4.0 mmol/L (3.5-5.1) 02/07/23 19:51 Chloride 107 mmol/L (98-107) 02/07/23 19:51 Carbon Dioxide 24 mmol/L (22-29) 02/07/23 19:51 Anion Gap 11.0 (5-19) 02/07/23 19:51 BUN 7 mg/dL (6-20) 02/07/23 19:51 Creatinine 0.7 mg/dL (0.5-0.9) 02/07/23 19:51 GFR Calculation 104.6 mL/min (90-130) 02/07/23 19:51 Glucose 98 mg/dL (65-115) 02/07/23 19:51 Calculated Osmolality 284 mOsm/kg (285-295) L 02/07/23 19:51 Calcium 8.5 mg/dL (8.5-10.5) 02/07/23 19:51 Total Bilirubin 0.2 mg/dL (0.15-1.2) 02/07/23 19:51 AST 11 U/L (0-32) 02/07/23 19:51 ALT 11 U/L (0-33) 02/07/23 19:51 Alkaline Phosphatase 70 U/L (35-105) 02/07/23 19:51 Total Protein 6.7 g/dL (6.6-8.7) 02/07/23 19:51 Albumin 4.1 g/dL (3.5-5.2) 02/07/23 19:51 Globulin 2.6 g/dL (1.3-4.6) 02/07/23 19:51 All radiology interpretation(s) finalized by discharge Discharge Plan Discharge Patient Disposition: Home Clinical Impression: Observed seizure-like activity, On combination antipsychotic drug therapy Condition: Stable Prescriptions: No Action hydroxyzine HCl 25 mg tablet 50 mg PO .HS PRN (Reason: itching) Qty: 60 0RF Rx Instructions: 1-2 tablets at bedtime as needed for sleep. omeprazole 20 mg tablet,delayed release (DR/EC) 20 mg PO DAILY Qty: 90 1RF sertraline [Zoloft] 100 mg tablet 100 mg PO DAILY Qty: 30 1RF lurasidone [Latuda] 40 mg tablet 40 mg PO .HS Qty: 30 1RF Rx Instructions: must administer with food (at least 350 calories) sulfamethoxazole-trimethoprim [Bactrim DS] 800-160 mg tablet 1 tab PO BID 7 Days Qty: 14 0RF ibuprofen 200 mg Tablet 400 mg PO Q6H PRN (Reason: Pain) Discharge Orders: Discharge ED (Routine); Ordered 02/07/23 Ordered By: Rolf Reardon Referrals: Heide Collins MD [Physician] - Jovanny Davis MD [Primary Care Provider] - Patient Instructions: Syncope in Children (ED) Activity Restrictions/Additional Instructions: Continue with routine care. Follow-up with primary care as needed. Contact neurologist office regarding referral. Drink plenty of water and fluids. Change positions slowly. Return to ER for worsening symptoms such as severe headache, high fever, or new concerns. Coding Level of Care Code ED Television Cameraman for Cierra Kelley
--- NOTE | 2023-02-07 19:26 | CTR_ITS ---
PROCEDURE INFORMATION: Exam: CT Head Without Contrast Exam date and time: 02/07/2023 7:35 PM Age: 22 years old Clinical indication: Pain; Headache; Additional info: Frequent headaches w/ loc, no prior imaing TECHNIQUE: Imaging protocol: Computed tomography of the head without contrast. Radiation optimization: All CT scans at this facility use at least one of these dose optimization techniques: automated exposure control; mA and/or kV adjustment per patient size (includes targeted exams where dose is matched to clinical indication); or iterative reconstruction. REPORTING DATA: Count of CT and Cardiac NM exams in prior 12 months: This patient has received 0 known CTs and 0 known cardiac nuclear medicine studies in the 12 months prior to the current study. COMPARISON: No relevant prior studies available. RADIATION DOSE METRICS: Total DLP (mGy-cm): 1005 FINDINGS: Brain: Normal. No hemorrhage. Unremarkable white matter. No mass effect. Cerebral ventricles: No ventriculomegaly. Paranasal sinuses: Visualized sinuses are unremarkable. No fluid levels. Mastoid air cells: Visualized mastoid air cells are well aerated. Bones/joints: Unremarkable. No acute fracture. Soft tissues: Unremarkable. CT/CT head wo con* [id number] IMPRESSION: No acute intracranial abnormality.
[2023-02-07 20:07] LABS: Basophils % 0.3 %; Eosinophils # 0.1 10^3/uL (0.0-0.8); Eosinophils % 1.1 %; Hematocrit 36.2 % (36-47); Lymphocytes # 1.9 10^3/uL (0.8-4.8); Lymphocytes % 25.8 %; Mean Corpuscular HGB Conc 30.4 g/dL (30-55); Mean Corpuscular Hemoglobin 26.3 pg (27-33); Mean Corpuscular Volume 86.4 fl (85-98); Mean Platelet Volume 10.2 fL (7.4-10.4); Monocytes # 0.4 10^3/uL (0.2-0.9); Monocytes % 5.6 %; Neutrophils # 4.88 10^3/uL (1.8-7.7); Neutrophils % 66.9 %; Nucleated Red Blood Cells % 0 %; Platelet Count 284 10^3/cmm (157-399); Red Blood Count 4.19 10^6/uL (3.85-5.65); Red Cell Distribution Width 14.7 % (12.1-15.1); White Blood Count 7.29 10^3/uL (3.29-11.43)
[2023-02-07 20:23] LABS: Alanine Aminotransferase 11 U/L (0-33); Albumin Level 4.1 g/dL (3.5-5.2); Alkaline Phosphatase 70 U/L (35-105); Aspartate Amino Transferase 11 U/L (0-32); Blood Urea Nitrogen 7 mg/dL (6-20); Calcium 8.5 mg/dL (8.5-10.5); Carbon Dioxide 24 mmol/L (22-29); Chloride 107 mmol/L (98-107); Globulin 2.6 g/dL (1.3-4.6); Glomerular Filtration Rate 104.6 mL/min (90-130); Glucose 98 mg/dL (65-115); Osmolality Calculated 284 mOsm/kg (285-295); Sodium 138 mmol/L (136-145); Total Bilirubin 0.2 mg/dL (0.15-1.2); Total Protein 6.7 g/dL (6.6-8.7)
== END 2023-02-07 20:55 | disposition home or self-care (01) ==
PROVIDERS: Emergency Provider Nurse Practitioner Family; PCP Family Medicine
DX: R56.9 Unspecified convulsions (principal)
CPT/HCPCS: 70450; 80053; 85025; 99284

== ENCOUNTER → 2023-03-01 15:57 | Outpatient (BNVA) | payer BC, MEDICAID, SELFPAY | PROVIDERS: PCP Family Medicine; Visit Provider Family Medicine | DX: N30.01 Acute cystitis with hematuria (principal); F60.3 Borderline personality disorder; F31.9 Bipolar disorder, unspecified; F43.10 Post-traumatic stress disorder, unspecified; F41.9 Anxiety disorder, unspecified; F32.1 Major depressive disorder, single episode, moderate; K21.9 Gastro-esophageal reflux disease without esophagitis | CPT/HCPCS: 81000; 87077; 87086; 87184 ==

== ENCOUNTER 2023-06-02 15:59 | Observation (INO) | payer BC, MEDICAID, SELFPAY ==
[2023-05-17 09:01] VITALS: BP 125/73; BMI 34.9
[2023-06-02 16:05] VITALS: BP 119/79; PULSE 70; RESP 18; TEMP 36.9; O2SAT 96; BMI 35.2
[2023-06-02 16:13] VITALS: BP 119/79; PULSE 70; RESP 18; O2SAT 96
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
[2023-06-02 17:04] LABS: Basophils % 0.3 %; Eosinophils # 0.1 10^3/uL (0.0-0.8); Eosinophils % 1.5 %; Hematocrit 36.6 % (36-47); Lymphocytes # 2.4 10^3/uL (0.8-4.8); Lymphocytes % 32.8 %; Mean Corpuscular HGB Conc 30.9 g/dL (30-55); Mean Corpuscular Hemoglobin 25.9 pg (27-33); Mean Corpuscular Volume 83.9 fl (85-98); Mean Platelet Volume 9.7 fL (7.4-10.4); Monocytes # 0.4 10^3/uL (0.2-0.9); Monocytes % 5.5 %; Neutrophils # 4.46 10^3/uL (1.8-7.7); Neutrophils % 59.8 %; Nucleated Red Blood Cells % 0 %; Platelet Count 322 10^3/cmm (157-399); Red Blood Count 4.36 10^6/uL (3.85-5.65); White Blood Count 7.45 10^3/uL (3.29-11.43)
[2023-06-02 17:06] LABS: HCG Qualitative Urine. Negative (Negative)
[2023-06-02 17:11] LABS: Amphetamines Screen Urine Negative (Negative); Barbiturates Screen Urine Negative (Negative); Benzodiazepines Screen Urine Negative (Negative); Cocaine Screen Urine Negative (Negative); Opiate Screen Urine Negative (Negative); PCP Screen Urine Negative (Negative); THC Screen Urine Negative (Negative)
[2023-06-02 17:35] LABS: Acetaminophen < 5.0 ug/mL (10-30); Alanine Aminotransferase 16 U/L (0-33); Albumin Level 4.2 g/dL (3.5-5.2); Alcohol Level < 10 mg/dL (0-10); Alkaline Phosphatase 76 U/L (35-105); Anion Gap 14.2 (5-19); Aspartate Amino Transferase 19 U/L (0-32); Blood Urea Nitrogen 8 mg/dL (6-20); Calcium 9.1 mg/dL (8.5-10.5); Carbon Dioxide 25 mmol/L (22-29); Chloride 106 mmol/L (98-107); Globulin 3.1 g/dL (1.3-4.6); Glomerular Filtration Rate 103.7 mL/min (90-130); Glucose 97 mg/dL (65-115); Osmolality Calculated 290 mOsm/kg (285-295); Potassium 4.2 mmol/L (3.5-5.1); Salicylate 1.5 mg/dL (3-10); Sodium 141 mmol/L (136-145); Thyroid Stimulating Hormone 1.91 uIU/mL (0.27-4.20); Total Bilirubin 0.3 mg/dL (0.15-1.2); Total Protein 7.3 g/dL (6.6-8.7)
[2023-06-02 17:38] LABS: Bilirubin Urine Neg (Negative); Blood Urine Neg (Negative); Glucose Urine UA Norm (Normal); Ketones Urine Negative (Negative); Leukocyte Esterase Urine Negative (Negative); Nitrate Urine Negative (Negative); Protein Urine Neg (Negative); Specific Gravity, Urine 1.015 (1.005-1.030); Sulfosalicylic Acid Urine Negative (Negative); Urine Appearance SL Hazy (CLEAR); Urine Color Yellow (Yellow); Urobilinogen Urine Norm (Negative); pH Urine 8 (5-7)
[2023-06-02 17:39] LABS: Add Urine Microscopic? YES
[2023-06-02 17:44] VITALS: BP 112/77; PULSE 68; RESP 13; TEMP 36.7; O2SAT 98
[2023-06-02 17:45] LABS: Add Urine Culture? No; Mucus Urine 2+ /hpf; RBC Urine 0-4 /hpf (0-2); Squamous Epithelial Cell Urine 0-4 /hpf (0-5); WBC Urine 0-4 /hpf (0-5)
[2023-06-02] MEDS: lurasidone 20 mg Tablet 60 MG PO (19:08)
[2023-06-02 20:35] VITALS: BP 127/64; PULSE 82; RESP 16; TEMP 36.7; O2SAT 97
[2023-06-03] MEDS: sertraline 100 mg Tablet 200 MG PO (08:37)
[2023-06-03] MEDS: pantoprazole DR 40 mg Tablet PO (08:39)
[2023-06-03 09:00] LABS: Basophils % 0.3 %; Eosinophils # 0.1 10^3/uL (0.0-0.8); Eosinophils % 1.6 %; Hematocrit 37.7 % (36-47); Lymphocytes # 3.4 10^3/uL (0.8-4.8); Lymphocytes % 44.6 %; Mean Corpuscular HGB Conc 30.5 g/dL (30-55); Mean Corpuscular Hemoglobin 25.4 pg (27-33); Mean Corpuscular Volume 83.4 fl (85-98); Mean Platelet Volume 9.6 fL (7.4-10.4); Monocytes # 0.4 10^3/uL (0.2-0.9); Monocytes % 5.2 %; Neutrophils # 3.69 10^3/uL (1.8-7.7); Neutrophils % 48.2 %; Nucleated Red Blood Cells % 0 %; Platelet Count 334 10^3/cmm (157-399); Red Blood Count 4.52 10^6/uL (3.85-5.65); Red Cell Distribution Width 13.8 % (12.1-15.1); White Blood Count 7.66 10^3/uL (3.29-11.43)
[2023-06-03 09:25] LABS: Anion Gap 13.4 (5-19); Blood Urea Nitrogen 11 mg/dL (6-20); Calcium 9.1 mg/dL (8.5-10.5); Carbon Dioxide 25 mmol/L (22-29); Chloride 107 mmol/L (98-107); Glomerular Filtration Rate 103.7 mL/min (90-130); Glucose 93 mg/dL (65-115); Osmolality Calculated 291 mOsm/kg (285-295); Potassium 4.4 mmol/L (3.5-5.1); Sodium 141 mmol/L (136-145)
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
[2023-06-03 12:45] VITALS: BP 127/64; PULSE 82; RESP 16; TEMP 36.7; O2SAT 97
== END 2023-06-03 14:33 | disposition home or self-care (01) ==
LOC: ER 16:47 → NP 06-03 11:27
PROVIDERS: Admitting Provider Psychiatry & Neurology Psychiatry; Emergency Provider Internal Medicine; PCP Family Medicine; Visit Provider Psychiatry & Neurology Psychiatry
DX: F31.81 Bipolar II disorder (principal); R45.851 Suicidal ideations; Z91.148 Patient's other noncompliance with medication regimen for other reason
CPT/HCPCS: 36415; 80048; 80053; 80306; 80307; 81001; 81025; 84443; 85025; 97150; 97165; 99285; G0378

== ENCOUNTER → 2023-11-15 18:29 | Outpatient (BNVA) | payer BC, MEDICAID, SELFPAY ==
[2023-05-17 09:01] VITALS: BP 125/73; BMI 34.9
== END ==
PROVIDERS: PCP Family Medicine; Visit Provider Emergency Medicine
DX: R52 Pain, unspecified (principal)
CPT/HCPCS: 73130; 73562

== ENCOUNTER 2024-07-05 16:59 | Emergency (ER) | payer BC, MEDICAID, SELFPAY ==
[2023-05-17 09:01] VITALS: BP 125/73; BMI 34.9
[2024-07-05 17:09] VITALS: BP 138/107; PULSE 81; RESP 16; TEMP 36.3; O2SAT 97
--- NOTE | 2024-07-05 17:24 | CTR_ITS ---
PROCEDURE INFORMATION: Exam: CT Head Without Contrast Exam date and time: 07/05/2024 5:47 PM Age: 24 years old Clinical indication: Syncope and collapse; Additional info: seizure / headache TECHNIQUE: Imaging protocol: Computed tomography of the head without contrast. Radiation optimization: All CT scans at this facility use at least one of these dose optimization techniques: automated exposure control; mA and/or kV adjustment per patient size (includes targeted exams where dose is matched to clinical indication); or iterative reconstruction. COMPARISON: CT head wo con* [id number] 02/07/2023 7:35 PM RADIATION DOSE METRICS: Total DLP (mGy-cm): 1003.42 FINDINGS: Brain: Normal. No hemorrhage. Unremarkable white matter. No mass effect. Cerebral ventricles: No ventriculomegaly. Paranasal sinuses: Visualized sinuses are unremarkable. No fluid levels. Mastoid air cells: Visualized mastoid air cells are well aerated. Bones: Unremarkable. No acute fracture. Soft tissues: Unremarkable. CT/CT head wo con* [id number] IMPRESSION: No acute intracranial abnormality.
[2024-07-05] MEDS: acetaminophen 500 mg Tablet 1000 MG PO (17:34)
--- NOTE | 2024-07-05 17:37 | ED_ITS ---
HPI - Seizure 2 General: Chief Complaint: Seizure Stated Complaint: seizure Time Seen by Provider: 07/05/24 17:14 Source: patient Mode of arrival: EMS Limitations: no limitations History of Present Illness: HPI Narrative: Patient is a 24-year-old female with history of generalized anxiety disorder, borderline personality disorder, PTSD, and bipolar disorder who is brought in by ambulance for reported seizure-like activity while at work just prior to arrival. 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 Bystanders had reported that she seemed to be out of it but was still conscious, and there was no seizure-like activity noted such as tonic-clonic jerking. Patient reports that she has a history of pseudoseizures and that this has happened before, just not as severe. She does not take any medications for seizures and does not see neurology. States that she is on antipsychotics as well as medications for depression but has not had any recent changes to this. Denies possibility of , is not on any oral contraceptives. States that currently she feels okay other than a mild headache and her arm still feeling kind of weak. She was not significantly exerting herself when this incident happened. She has no chest pain, shortness of breath, abdominal pain, fevers, recent illness, or other symptoms reported this time. EMS reporting that her blood sugar was low enroute. complaint: possible seizure Onset (ago): minute(s) Description of Episode: other ( Fell to the ground and seemed out of it ) -: second(s) Witnessed: Yes - by Bystander Seizure History: Yes ( Pseudoseizure ) Place: Work Possible Precipitating Event: none Associated symptoms: Deny chest pain, chills or fever(s) Treatments prior to arrival: none Related Data Previous Rx's ?Medication ?Instructions ?Recorded miscellaneous medical supply 1 ea miscellaneous DAILY #1 ea 11/15/23 omeprazole 20 mg tablet,delayed 20 mg PO DAILY #30 tab s 02/23/24 release lurasidone 60 mg tablet (Latuda) 60 mg PO BEDTIME #30 tabs 06/25/24 sertraline 100 mg tablet (Zoloft) 200 mg (2 x 100 mg) PO DAILY #60 06/25/24 tabs Allergies Allergy/AdvReac Type Severity Reaction Status Date / Time No Known Allergies Allergy Verified 07/05/24 17:13 Review of Systems 2 General: Reports: 10 or more systems reviewed and unremarkable except in HPI and below Const: Denies: fever(s), chills or fatigue Eyes: Denies: change in vision ENMT: Denies: throat pain, ear or mastoid pain or nasal discharge Card: Denies: chest pain, palpitations, swelling of feet/ankles or lightheadedness Resp: Denies: dyspnea, productive cough or wheezing GI: Denies: abdominal pain, nausea, vomiting, diarrhea or constipation : Denies: flank pain, difficulty voiding, dysuria or urinary frequency Musc: Denies: neck pain, back pain or joint pain Skin/Breast: Denies: rash Neuro: Reports: headache(s), weakness in extremities and seizure-like activity; Denies: numbness in extremities, lack of coordination, frequent falls, dizziness or Slurred speech present PFSH ED 2 PFSH: Medical History On combination antipsychotic drug therapy Insomnia Generalized anxiety disorder Psychiatric care Borderline personality disorder PTSD (post-traumatic stress disorder) Asthma, exercise induced VSD (ventricular septal defect) Bipolar 1 disorder Family History Grandfather Cancer Maternal-pancreatic Grandmother Cancer Maternal-lung Other Chronic kidney disease (CKD) Dementia Diabetes Hypertension Lung disease Psychiatric illness Denies family history of CAD (coronary artery disease) Clotting disorder Hyperlipidemia Suicide Anesthesia complication Bleeding disorder Stroke Social History Smoking and tobacco/nicotine status: unknown if used tobacco/nicotine Alcohol intake: current Alcohol intake frequency: holidays/special occasions only Substance/Drug Use: current Substance/Drug use frequency: few times a week Adopted: No Caregiver/support person: No Lives independently: Yes Household members: family Housing: House Marital status: Single Number of children: 0 Highest education level completed: GED or Equivalent service: No Current occupational status: employed and other 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 Current occupational exposures/hazards: Yes (sharp and heavy objects) Pets and animals: Yes Pets & animals: cat(s) and dog(s) Leisure activites: art, music, reading and other Leisure activities details: sitting and talking with partners Sexually active: No Do you think of yourself as: pansexual, polyamorous Current gender identity: Other Gender Identity Comment: Pansexual, genderfluid, polyamorous Roxie/Zoroastrianism: Other Special roxie needs: No Agree to transfusion: Yes Female Reproductive History: Date of last menstrual period: 06/16/24 Para: 0 Spontaneous abortions: No Physical Exam 2 Const: COMMON NORMALS: no acute distress, patient oriented x3 and no limitations GENERAL APPEARANCE: cooperative, comfortable and well developed NUTRITIONAL APPEARANCE: obese morbidly obese ORIENTATION/CONSCIOUSNESS: Yes awake, Yes oriented to person, Yes oriented to place and Yes oriented to time HENMT: COMMON NORMALS: normocephalic, atraumatic and hearing grossly normal bilaterally HEAD & SCALP: normocephalic and atraumatic OTHER: No raccoon eyes or Gallegos sign Eye: COMMON NORMALS: Equal, round and reactive pupils present, EOMs intact bilaterally and conjunctivae normal CONJUNCTIVA: Yes conjunctivae normal P UPIL: Yes Equal, round and reactive pupils present OTHER: Eyes track midline, no nystagmus Neck/C-Spine: COMMON NORMALS: full ROM, supple and no JVD OTHER: No cervical spine tenderness Resp: COMMON NORMALS: normal respiratory effort, No retractions, No use of accessory muscles and clear to auscultation bilaterally AUSCULTATION: clear to auscultation bilaterally Cardio: COMMON NORMALS: no JVD, regular rate, regular rhythm, No clicks present (Cardio), No murmurs present (Cardio) and No rub (Cardio) RATE: r egular rate RHYTHM: regular rhythm GI: COMMON NORMALS: Normal to inspection, nondistended, normoactive bowel sounds present, Soft to palpation and non-tender AUSCULTATION: Yes normoactive bowel sounds PALPATION: Yes Soft to palpation RECTAL EXAM: d eferred Extremity: COMMON NORMALS: normal to inspection, full ROM, capillary refill normal and no pedal edema Neuro: COMMON NORMALS: patient oriented x3, CN's II-XII intact bilaterally, moves all extremities, no focal motor deficits and no sensory deficits noted SENSORIUM/ORIENTATION: Yes oriented to person, Yes oriented to place and Yes oriented to time COORDINATION/BALANCE: [id number] test normal and [id number] test normal SPEECH: speech normal MOTOR EXAM: 5/5 motor strength present throughout, Pronator motor function not present, no tremor noted and Normal motor muscle tone present throughout COORDINATION: f [id number]-[id number] test normal and lkgg-cw-[id number] test normal Psych: COMMON NORMALS: mental status grossly normal and Normal thought process present THOUGHT PROCESS: Normal thought process present Skin: COMMON NORMALS: no rashes or lesions noted GENERAL SKIN EXAM: no rashes or lesions noted Course 2 Vital Signs: Vital signs: Vital Signs Temperature 97.4 F L 07/05/24 17:09 Pulse Rate 115 H 07/05/24 19:00 Respiratory Rate 18 07/05/24 19:00 Blood Pressure 149/90 07/05/24 19:00 Pulse Oximetry 95 07/05/24 19:00 Oxygen Delivery Me thod Room Air 07/05/24 17:09 MDM - Seizure MDM Narrative Medical decision making narrative: Patient was brought in by ambulance for concerns of possible seizure at work. Patient reportedly history of pseudoseizures and thinks that this was 1 of those. Has never seen a neurologist and does not take any seizure medication. Neurologically intact on physical exam, vitals have been stable throughout ED course. Patient also stated she was concerned about a potential POTS syndrome. With her labs, nothing stood out ultimately was unremarkable. Head CT was normal. No further seizure-like activity here. This could have been a pseudoseizure, could have also been episode of POTS could have also been true neurological seizure. Ultimately will have her officially follow-up with neurology for further testing to possibly include EEG and potentially MRI and evaluation for any prophylactic medication. My suspicion is that this is potentially related to anxiety or panic episode, but ultimately told the patient to return with any further seizure-like activity or other concerns that she has. She verbalized understanding and is ready for discharge home. Lab Data 07/05/24 19:03 07/05/24 19:03 Labs: Radiology Impressions Head CT 07/05/24 17:24 IMPRESSION: No acute intracranial abnormality. Laboratory Results WBC 11.54 10^3/uL (3.29-11.43) H 07/05/24 19:03 RBC 4.59 10^6/uL (3.85-5.65) 07/05/24 19:03 Hgb 10.50 g/dL (11.27-16.99) L 07/05/24 19:03 Hct 36.7 % (36-47) 07/05/24 19:03 MCV 80.0 fl (85-98) L 07/05/24 19:03 MCH 22.9 pg (27-33) L 07/05/24 19:03 MCHC 28.6 g/dL (30-55) L 07/05/24 19:03 RDW 15.3 % (12.1-15.1) H 07/05/24 19:03 Plt Count 349 10^3/cmm (157-399) 07/05/24 19:03 MPV 9.4 fL (7.4-10.4) 07/05/24 19:03 Neut % (Auto) 71.5 % 07/05/24 19:03 Lymph % (Auto) 21.7 % 07/05/24 19:03 Bartholomew % (Auto) 5.1 % 07/05/24 19:03 Eos % (Auto) 0.8 % 07/05/24 19:03 Baso % (Auto) 0.4 % 07/05/24 19:03 Neut # (Auto) 8.25 10^3/uL (1.8-7.7) H 07/05/24 19:03 Lymph # (Auto) 2.5 10^3/uL (0.8-4.8) 07/05/24 19:03 Bartholomew # (Auto) 0.6 10^3/uL (0.2-0.9) 07/05/24 19:03 Eos # (Auto) 0.1 10^3/uL (0.0-0.8) 07/05/24 19:03 Baso # (Auto) 0.1 10^3/uL (0.0-0.1) 07/05/24 19:03 Nucleated RBC % (auto) 0 % 07/05/24 19:03 Nucleated RBCs # 0.0 /100WBC 07/05/24 19:03 Sodium 137 mmol/L (136-145) 07/05/24 19:03 Potassium 4.1 mmol/L (3.5-5.1) 07/05/24 19:03 Chloride 105 mmol/L (98-107) 07/05/24 19:03 Carbon Dioxide 22 mmol/L (22-29) 07/05/24 19:03 Anion Gap 14.1 (5-19) 07/05/24 19:03 BUN 7 mg/dL (6-20) 07/05/24 19:03 Creatinine 0.6 mg/dL (0.5-0.9) 07/05/24 19:03 GFR Calculation 122.8 mL/min (90-130) 07/05/24 19:03 Glucose 92 mg/dL (65-115) 07/05/24 19:03 Calculated Osmolality 282 mOsm/kg (285-295) L 07/05/24 19:03 Calcium 9.0 mg/dL (8.5-10.5) 07/05/24 19:03 Magnesium 2.0 mg/dL (1.7-2.3) 07/05/24 19:03 Total Bilirubin 0.2 mg/dL (0.15-1.2) 07/05/24 19:03 AST 22 U/L (0-32) 07/05/24 19:03 ALT 25 U/L (0-33) 07/05/24 19:03 Alkaline Phosphatase 88 U/L (35-105) 07/05/24 19:03 Total Protein 7.1 g/dL (6.6-8.7) 07/05/24 19:03 Albumin 4.1 g/dL (3.5-5.2) 07/05/24 19:03 Globulin 3.0 g/dL (1.3-4.6) 07/05/24 19:03 HCG, Qual Negative (Negative) 07/05/24 18:10 Urine Color Yellow (Yellow) 07/05/24 18:10 Urine Appearance Cloudy (CLEAR) A 07/05/24 18:10 Urine pH 6.0 (5-7) 07/05/24 18:10 Ur Specific Howe 1.023 (1.005-1.030) 07/05/24 18:10 Urine Protein Negative (Negative) 07/05/24 18:10 Urine Glucose (UA) Negative (Normal) 07/05/24 18:10 Urine Ketones Negative (Negative) 07/05/24 18:10 Urine Blood Negative (Negative) 07/05/24 18:10 Urine Nitrate Negative (Negative) 07/05/24 18:10 Urine Bilirubin Negative (Negative) 07/05/24 18:10 Urine Urobilinogen 1.0 mg/dL (Negative) 07/05/24 18:10 Ur Leukocyte Esterase Negative (Negative) 07/05/24 18:10 Urine RBC 0-4 /hpf (0-2) H 07/05/24 18:10 Urine WBC 0-4 /hpf (0-5) H 07/05/24 18:10 Ur Squamous Epith Cells 0-4 /hpf (0-5) H 07/05/24 18:10 Amorphous Sediment Not Reportable 07/05/24 18:10 Urine Bacteria 1+ /hpf (NONE) H 07/05/24 18:10 Urine Mucus None /hpf 07/05/24 18:10 Urine Opiates Screen Negative ng/mL (Negative) 07/05/24 18:10 Ur Barbiturates Screen Negative ng/mL (Negative) 07/05/24 18:10 Ur Phencyclidine Scrn Negative ng/mL (Negative) 07/05/24 18:10 Ur Amphetamines Screen Negative ng/mL (Negative) 07/05/24 18:10 U Benzodiazepines Scrn Negative ng/mL (Negative) 07/05/24 18:10 Urine Cocaine Screen Negative ng/mL (Negative) 07/05/24 18:10 U Marijuana (THC) Screen Negative ng/mL (Negative) 07/05/24 18:10 All radiology interpretation(s) finalized by discharge Discharge Plan Discharge Patient Disposition: Home Clinical Impression: Syncope and collapse Condition: Stable Prescriptions: No Action miscellaneous medical supply Misc 1 ea miscellaneous DAILY Qty: 1 0RF Rx Instructions: knee immobilizer sertraline [Zoloft] 100 mg tablet 200 mg PO DAILY Qty: 60 11RF Latuda 60 mg tablet 60 mg PO BEDTIME Qty: 30 11RF omeprazole 20 mg tablet,delayed release (DR/EC) 20 mg PO DAILY Qty: 30 3RF Discharge Orders: Discharge ED (Routine); Ordered 07/05/24 Ordered By: Guicho Yoon Referrals: Jovanny Davis MD [Primary Care Provider] - Patient Instructions: Syncope (ED) Activity Restrictions/Additional Instructions: Follow-up with the neurologist as we discussed, await call to set up the appointment. Follow-up with your primary care provider routinely. Please return with any further episodes or other concerns that you have. Continue taking home medications. Tylenol for any headaches. Drink plenty of fluids. Work note provided. Stand Alone Forms: Work/School Release Print Language: Upper Sorbian Coding Level of Care Code ED [employer] for [employer]
[2024-07-05 18:13] VITALS: BP 120/71; PULSE 101; O2SAT 95
[2024-07-05 18:24] LABS: Bilirubin Urine Negative (Negative); Blood Urine Negative (Negative); Glucose Urine UA Negative (Normal); Ketones Urine Negative (Negative); Leukocyte Esterase Urine Negative (Negative); Nitrate Urine Negative (Negative); Protein Urine Negative (Negative); Specific Gravity, Urine 1.023 (1.005-1.030); Urine Appearance Cloudy (CLEAR); Urine Color Yellow (Yellow)
[2024-07-05 18:26] LABS: HCG Qualitative Urine. Negative (Negative)
[2024-07-05 18:30] LABS: Add Urine Microscopic? YES; Amphetamines Screen Urine Negative (Negative); Barbiturates Screen Urine Negative (Negative); Benzodiazepines Screen Urine Negative (Negative); Cocaine Screen Urine Negative (Negative); Opiate Screen Urine Negative (Negative); PCP Screen Urine Negative (Negative); THC Screen Urine Negative (Negative); UA Manual Slide Review YES; UA Slide Review UA Slide Review Perf
[2024-07-05 18:36] LABS: RBC Urine 0-4 /hpf (0-2); Squamous Epithelial Cell Urine 0-4 /hpf (0-5); WBC Urine 0-4 /hpf (0-5)
[2024-07-05 18:37] LABS: Bacteria Urine 1+ /hpf
[2024-07-05 18:38] LABS: Add Urine Culture? No
[2024-07-05 19:00] VITALS: BP 149/90; PULSE 115; RESP 18; O2SAT 95
[2024-07-05 19:10] LABS: Basophils # 0.1 10^3/uL (0.0-0.1); Basophils % 0.4 %; Eosinophils # 0.1 10^3/uL (0.0-0.8); Eosinophils % 0.8 %; Hematocrit 36.7 % (36-47); Lymphocytes # 2.5 10^3/uL (0.8-4.8); Lymphocytes % 21.7 %; Mean Corpuscular HGB Conc 28.6 g/dL (30-55); Mean Corpuscular Hemoglobin 22.9 pg (27-33); Mean Platelet Volume 9.4 fL (7.4-10.4); Monocytes # 0.6 10^3/uL (0.2-0.9); Monocytes % 5.1 %; Neutrophils # 8.25 10^3/uL (1.8-7.7); Neutrophils % 71.5 %; Nucleated Red Blood Cells % 0 %; Platelet Count 349 10^3/cmm (157-399); Red Blood Count 4.59 10^6/uL (3.85-5.65); Red Cell Distribution Width 15.3 % (12.1-15.1); White Blood Count 11.54 10^3/uL (3.29-11.43)
[2024-07-05 19:29] LABS: Alanine Aminotransferase 25 U/L (0-33); Albumin Level 4.1 g/dL (3.5-5.2); Alkaline Phosphatase 88 U/L (35-105); Anion Gap 14.1 (5-19); Aspartate Amino Transferase 22 U/L (0-32); Blood Urea Nitrogen 7 mg/dL (6-20); Carbon Dioxide 22 mmol/L (22-29); Chloride 105 mmol/L (98-107); Creatinine Clr Calc Pharmacy 177.7721; Glomerular Filtration Rate 122.8 mL/min (90-130); Glucose 92 mg/dL (65-115); Osmolality Calculated 282 mOsm/kg (285-295); Potassium 4.1 mmol/L (3.5-5.1); Sodium 137 mmol/L (136-145); Total Bilirubin 0.2 mg/dL (0.15-1.2); Total Protein 7.1 g/dL (6.6-8.7)
[2024-07-05 19:30] VITALS: BP 115/79; PULSE 78; RESP 14; O2SAT 97
[2024-07-05 19:47] VITALS: BP 119/75; PULSE 78; O2SAT 97
--- NOTE | 2024-07-06 08:13 | DCPLANNER ---
messaged neuro for er f/u
== END 2024-07-05 19:48 | disposition home or self-care (01) ==
PROVIDERS: Emergency Provider Physician Assistant; PCP Family Medicine
DX: R55 Syncope and collapse (principal)
CPT/HCPCS: 36415; 70450; 80053; 80306; 81001; 81025; 83735; 85025; 99284

== ENCOUNTER → 2024-07-18 14:12 | Outpatient (BNVA) | payer BC, MEDICAID, SELFPAY ==
[2023-05-17 09:01] VITALS: BP 125/73; BMI 34.9
== END ==
PROVIDERS: PCP Family Medicine; Visit Provider Family Medicine
DX: K21.9 Gastro-esophageal reflux disease without esophagitis (principal)
CPT/HCPCS: 82533; 84439; 84443

== ENCOUNTER → 2024-09-04 14:13 | Outpatient (BNVA) | payer SELFPAY ==
[2023-05-17 09:01] VITALS: BP 125/73; BMI 34.9
== END ==
PROVIDERS: PCP Family Medicine; Visit Provider Family Medicine
DX: E03.8 Other specified hypothyroidism (principal); Z86.39 Personal history of other endocrine, nutritional and metabolic disease
CPT/HCPCS: 84439; 84443; 86376

== ENCOUNTER → 2024-09-06 13:17 | Outpatient (BNVA) | payer OTHER, SELFPAY ==
[2023-05-17 09:01] VITALS: BP 125/73; BMI 34.9
== END ==
PROVIDERS: PCP Family Medicine; Visit Provider Psychiatry & Neurology Psychiatry
DX: F31.81 Bipolar II disorder (principal)
CPT/HCPCS: 80061; 83036

== ENCOUNTER → 2024-10-16 11:52 | Outpatient (BNVA) | payer SELFPAY ==
[2024-09-11 16:59] VITALS: BP 136/93; BMI 47.2
== END ==
PROVIDERS: PCP Family Medicine; Visit Provider Family Medicine
DX: E03.9 Hypothyroidism, unspecified (principal)
CPT/HCPCS: 80053; 84439; 84443

== ENCOUNTER → 2024-11-30 14:59 | Outpatient (BNVA) | payer BC, MEDICAID, SELFPAY ==
[2024-09-11 16:59] VITALS: BP 136/93; BMI 47.2
== END ==
PROVIDERS: PCP Family Medicine; Visit Provider Family Medicine
DX: E03.9 Hypothyroidism, unspecified (principal)
CPT/HCPCS: 84439; 84443

== ENCOUNTER 2024-12-03 11:06 | Outpatient (CLI) | payer BC, MEDICAID, SELFPAY ==
[2024-09-11 16:59] VITALS: BP 136/93; BMI 47.2
[2024-12-03 13:38] LABS: Free T4 Free Thyroxine 0.90 ng/dL (0.82-1.77); Thyroid Stimulating Hormone 1.68 uIU/mL (0.27-4.20)
== END 2024-12-03 11:07 | disposition home or self-care (01) ==
LOC: LAB 11:09
PROVIDERS: PCP Family Medicine; Visit Provider Family Medicine
DX: E03.9 Hypothyroidism, unspecified (principal)
CPT/HCPCS: 36415; 84439; 84443